=== PATIENT | female | born 1930 | race Two or more races ===

== ENCOUNTER 2020-11-27 10:15 | Emergency (ER) | payer OTHER ==
[~2020-11-27] VITALS: Ht 160 cm; Wt 58.1 kg
[~2020-11-27 10:15] MED LIST: ALL DAY ALLERGY10 M1; ATIVAN0.5 M1; AZITHROMYCIN250 MG; COZAAR50 MG; GLIMEPIRIDE1 MG; IMODIUM A-D2 MG PO; INTESTINEX1 CA1 PO; KEPPRA100 MG/1 M; METFORMIN HCL500 MG; METRONIDAZOLE500 MG PO; PROMETHAZI6.25 MG/5; PROTONIX40 MG PO; TOPROL XL25 M1
[2020-11-27] MEDS ORDERED: NORVASC2.5 M1 (10:21)
[2020-11-27] MEDS ORDERED: ATIVAN1 M1 (10:21)
[2020-11-27] MEDS ORDERED: GLIMEPIRIDE1 MG (10:22)
[2020-11-27] MEDS ORDERED: MINITRAN1 EAC1 (10:23)
== END 2020-11-27 16:11 | disposition home or self-care (01) ==
LOC: ER 10:15
DX: N39.0 Urinary tract infection, site not specified (principal); R10.84 Generalized abdominal pain